=== PATIENT | female | born 1965 | race Asian ===

== ENCOUNTER 2020-02-23 15:09 | Outpatient (REF) | payer BC, SELFPAY ==
--- NOTE | 2020-02-23 | MM_ITS ---
EXAMINATION: MM SCREENING DIGITAL BREAST TOMOSYNTHESIS, BILATERAL CLINICAL INFORMATION: Screening. Asymptomatic. The lifetime risk of breast cancer based on the Tyrer-Cuzick Model is 8%. COMPARISON: Mammography: 02/20/2019, 12/14/2017, 11/05/2014 TECHNIQUE: Digital breast tomosynthesis is performed in both the craniocaudal and mediolateral oblique views along with computer-aided detection (CAD). Synthesized 2D images are generated from the tomosynthesis. Additional exaggerated left CC view is provided. FINDINGS: There are scattered areas of fibroglandular density (ACR BI-RADS breast composition Category b). There are no significant masses, abnormal calcifications, or other abnormalities. There is a small circumscribed nodule mid medial right breast on CC view similar to prior exams. No developing density. MM/MM tomosynthesis screening BI IMPRESSION: No mammographic evidence of malignancy. ASSESSMENT: BI-RADS 2: Benign RECOMMENDATION: Routine annual mammography screening. This patient's information was entered into a reminder system with a target due date for their next mammogram.
== END 2020-02-23 15:10 | disposition home or self-care (01) ==
LOC: HO.MAMMO 15:09
PROVIDERS: PCP Internal Medicine; Visit Provider Internal Medicine
DX: Z12.31 Encounter for screening mammogram for malignant neoplasm of breast (principal)
CPT/HCPCS: 77063; 77067

== ENCOUNTER 2020-03-24 14:32 | Outpatient (REF) | payer BC, SELFPAY ==
--- NOTE | 2020-03-24 | MM_ITS ---
EXAMINATION: BONE DENSITOMETRY CLINICAL INDICATION: Screening for osteoporosis. COMPARISON: None (current study represents initial baseline exam). TECHNIQUE: Using a [employer] DXA System (software version: 13.1) manufactured by [employer], dual-energy x-ray absorptiometry was performed of the lumbar spine and left hip. The images are of good technical quality. Summary results are attached. FINDINGS: AP SPINE L1-L4: BMD 1.014 g/cm2, Z-score -0.5, T-score -1.4, osteopenia. LEFT FEMUR, NECK: BMD 0.815 g/cm2, Z-score -0.6, T-score -1.6, osteopenia. LEFT FEMUR, TOTAL: BMD 0.842 g/cm2, Z-score -0.6, T-score -1.3, osteopenia. IDENTIFIED RISK FACTORS: Menopause. HISTORY OF FRACTURE: None listed. MEDICATIONS: Multivitamin, ERT/SERMS. MM/XR DEXA axial skeleton IMPRESSION: 1. DIAGNOSIS: Osteopenia based on the lowest T-score value of -1.6 in the femoral neck applying World Health Organization criteria. 2. 10-YEAR FRACTURE RISK PREDICTION, FRAX: Major osteoporotic fracture (clinical spine, forearm, hip or shoulder) 3.9%. Hip fracture 0.3%. 3. Treatment Recommendations: NOF guidelines recommend consideration for treatment in postmenopausal women and men age 50 and older presenting with the following: -A hip or vertebral (clinical or morphometric) fracture. -T-score less than or equal to -2.5 at the femoral neck or spine after appropriate evaluation to exclude secondary causes. -Low bone mass at the hip or spine and a 10-year fracture probability by FRAX of greater than or equal to 3% for hip fracture or greater than or equal to 20% for major osteoporotic fracture based on the [place] adapted WHO algorithm. 4. Other Recommendations: All treatment decisions require clinical judgment and consideration of individual patient factors, including patient preferences, comorbidities, previous drug use, risk factors not captured in the FRAX model (e.g. frailty, falls, vitamin D deficiency, increased bone turnover, interval significant decline in bone density) and possible under or overestimation of fracture risk by FRAX. Additional medical evaluation for secondary cause of low bone mineral density may be appropriate. FUTURE SCAN RECOMMENDATION: People with diagnosed cases of osteoporosis or at high risk for fracture should have regular bone mineral density tests. For patients eligible for Medicare, routine testing is allowed once every 2 years. The testing frequency can be increased to one year for patients who have rapidly progressing disease, those who are receiving or discontinuing medical therapy to restore bone mass, or have additional risk factors.
== END 2020-03-24 14:33 | disposition home or self-care (01) ==
LOC: HO.MAMMO 14:32
PROVIDERS: Visit Provider Obstetrics & Gynecology Gynecology
DX: Z12.31 Encounter for screening mammogram for malignant neoplasm of breast (principal); Z13.820 Encounter for screening for osteoporosis; Z78.0 Asymptomatic menopausal state; Z79.810 Long term (current) use of selective estrogen receptor modulators (SERMs)
CPT/HCPCS: 77080

== ENCOUNTER 2021-03-06 08:06 | Outpatient (REF) | payer BC, SELFPAY ==
--- NOTE | ~2021-03-06 | MM_ITS ---
EXAMINATION: MM SCREENING DIGITAL BREAST TOMOSYNTHESIS, BILATERAL CLINICAL INFORMATION: Screening. Asymptomatic. The lifetime risk of breast cancer based on the Tyrer-Cuzick Model is 7%. COMPARISON: Mammography: 02/23/2020, 02/20/2019, 12/14/2017 TECHNIQUE: Digital breast tomosynthesis is performed in both the craniocaudal and mediolateral oblique views along with computer-aided detection (CAD). Synthesized 2D images are generated from the tomosynthesis. FINDINGS: There are scattered areas of fibroglandular density (ACR BI-RADS breast composition Category b). There are no significant masses, abnormal calcifications, or other abnormalities. No developing density or interval architectural abnormality. No significant changes. MM/MM tomosynthesis screening BI IMPRESSION: There are no significant changes from prior study. ASSESSMENT: BI-RADS 2: Benign RECOMMENDATION: Routine annual mammography screening. This patient's information was entered into a reminder system with a target due date for their next mammogram.
== END 2021-03-06 08:07 | disposition home or self-care (01) ==
LOC: HO.MAMMO 08:06
PROVIDERS: PCP Internal Medicine; Visit Provider Internal Medicine
DX: Z12.31 Encounter for screening mammogram for malignant neoplasm of breast (principal)
CPT/HCPCS: 77063; 77067

== ENCOUNTER 2022-03-22 09:00 | Outpatient (REF) | payer BC, SELFPAY ==
--- NOTE | ~2022-03-22 | MM_ITS ---
EXAMINATION: MM SCREENING DIGITAL BREAST TOMOSYNTHESIS, BILATERAL CLINICAL INFORMATION: Screening. Asymptomatic. The lifetime risk of breast cancer based on the Tyrer-Cuzick Model is 6%. COMPARISON: Mammography: 03/06/2021, 02/23/2020, 02/20/2019 TECHNIQUE: Digital breast tomosynthesis is performed in both the craniocaudal and mediolateral oblique views along with computer-aided detection (CAD). Synthesized 2D images are generated from the tomosynthesis. FINDINGS: There are scattered areas of fibroglandular density (ACR BI-RADS breast composition Category b). There are no significant masses, abnormal calcifications, or other abnormalities. Parenchymal pattern is similar to prior studies. The axilla and skin contours are unremarkable. MM/MM tomosynthesis screening BI IMPRESSION: No mammographic evidence of malignancy. ASSESSMENT: BI-RADS 1: Negative RECOMMENDATION: Routine annual mammography screening. This patient's information was entered into a reminder system with a target due date for their next mammogram.
== END 2022-03-22 09:01 | disposition home or self-care (01) ==
LOC: HO.MAMMO 09:00
PROVIDERS: PCP Internal Medicine; Visit Provider Internal Medicine
DX: Z12.31 Encounter for screening mammogram for malignant neoplasm of breast (principal)
CPT/HCPCS: 77063; 77067

== ENCOUNTER 2023-03-27 09:01 | Outpatient (REF) | payer BC, SELFPAY | END 2023-03-27 09:02 | disposition home or self-care (01) | LOC: HO.MAMMO 09:01 | PROVIDERS: PCP Internal Medicine; Visit Provider Internal Medicine | DX: Z12.31 Encounter for screening mammogram for malignant neoplasm of breast (principal) | CPT/HCPCS: 77063; 77067 ==

== ENCOUNTER → 2023-03-27 09:15 | Outpatient (BNV) | payer BC, SELFPAY | PROVIDERS: PCP Internal Medicine; Visit Provider Radiology Diagnostic Radiology | DX: Z12.31 Encounter for screening mammogram for malignant neoplasm of breast (principal) | CPT/HCPCS: 77063; 77067 ==

== ENCOUNTER → 2024-03-30 09:00 | Outpatient (BNV) | payer BC, SELFPAY | PROVIDERS: PCP Internal Medicine; Visit Provider Internal Medicine | DX: Z12.31 Encounter for screening mammogram for malignant neoplasm of breast (principal) | CPT/HCPCS: 77063; 77067 ==

== ENCOUNTER 2024-03-30 09:05 | Outpatient (REF) | payer BC, SELFPAY ==
--- OUTSIDE RECORDS SUMMARY | 2024-03-30 09:25 | XMS_ITS | Clinical Summary ---
Author Organization [facility] Address [address] [place] [id number] Care Team Providers Care Manager Concrete Name Role Phone Pcp, No Primary Care Provider Unavailabl e Allergies No known active allergies Medications Medication Sig Dispensed Refills Start Date End Date Status amLODIPine (NORVASC) 10 MG tablet Take 1 tablet (10 mg total) by mouth. 01/26/2024 Active Synthroid 75 MCG tablet Take 1 tablet (75 mcg total) by mouth. 01/26/2024 Active Encounters Date Type Department Care Team Description 03/11/2024 1:45 PM EST Workers Comp Episode [facility] [address] [phone] Penelope Pascual MD Hand pain, right (Primary Dx) 03/11/2024 Travel from Last 3 Months Social History Tobacco Use Types Packs/Day Years Used Date Smoking Tobacco: Never Assessed Sex and Gender Information Value Date Recorded Sex Assigned at Female 03/11/2024 1:25 PM EST Gender Identity Female 03/11/2024 1:25 PM EST Sexual Orientation Choose not to disclose 2024 1:25 PM EST Last Filed Vital Signs Vital Sign Reading Time Taken Comments Blood Pressure 110/80 03/11/2024 2:07 PM EST Pulse 68 03/11/2024 2:07 PM EST Temperature 36.8 ??C (98.2 ??F) 03/11/2024 2:07 PM ES T Respiratory Rate - - Oxygen Saturation 97% 03/11/2024 2:07 PM EST Inhaled Oxygen Concentration - - Weight - - Height - - Body Mass Index - - Plan of Treatment Upcoming Encounters Date Type Department Care Team (Late st Contact Info) Description 04/09/2024 10:45 AM EST [facility] Visit [facility] [address] [place] [address] Vidal Velasquez MD [address] [place] [address] [place] [address] Health Maintenance Due Date Last Done Comments Hepatitis C Virus Screening 1965 HIV Screening 11/28/1976 DTaP/Tdap/Td Vaccines (1 - Tdap) 11/28/1982 Pap Smear (Ages 21-65) 11/28/1984 Mammogram 2003 Colonoscopy 11/28/2008 Pneumococcal Vaccines 50+ (1 of 1 - PCV) 11/28/2013 Zoster (Shingles) Vaccine (1 of 2) 11/28/2013 Influenza Vaccine 09/26/2023 COVID-19 Vaccine (1 - 2023-2 5 season) 2023 RSV Vaccine 60 years and old er and Patients (1 - 1-dose 75+ series) 11/28/2038 Hepatitis B Vaccines Aged Out No long er eligible based on patient's age to complete this topic Care Teams Manager Concrete Relationship Specialty Start Date End Date Pcp, No PCP - General General Medicine 03/11/24
--- OUTSIDE RECORDS SUMMARY | 2024-03-30 09:25 | XMS_ITS | Encounter Summary ---
Author Organization [facility] Address [address] [place] [address] Care Team Providers Care Devil Tender Name Role Phone Pcp, No Primary Care Provider Unavailabl e Reason for Referral * Orthopedic (Routine) - Closed Specialty Diagnoses / Procedures Referred By Fernanda joyner Referred To Contact Surgery, Orthopedic / Orthopedic Surgery Diagnoses Hand pain, right Penelope Pascual MD [address] [place] [address] Referral ID Status Reason Start Date Expiration Date V isits Requested Visits Authorized [id number] Closed Consult 03/11/2024 03/12/2025 1 1 Comments Hand surgeon please Patient requests provider who sees patients in the [facility] Reason for Visit * Reason Comments Work Related Injury Right thumb cyst x 1 month Encounter Details Date Type Department Care Team (Latest Contact Info) Description 03/11/2024 1:45 PM EST Workers Comp [place] [phone] Penelope Pascual MD [address] [place] [address] Hand pain, right (Primary Dx) Social History Tobacco Use Types Packs/Day Years Used Date Smoking Tobacco: Never Assessed Sex and Gender Information Value Date Recorded Sex Assigned at Female 03/11/2024 1:25 PM EST Gender Identity Female 03/11/2024 1:25 PM EST Sexual Orientation Choose not to disclose 2024 1:25 PM EST documented as of this encounter Last Filed Vital Signs Vital Sign Reading Time Taken Comments Blood Pressure 110/80 03/11/2024 2:07 PM EST Pulse 68 03/11/2024 2:07 PM EST Temperature 36.8 ??C (98.2 ??F) 03/11/2024 2:07 PM ES T Respiratory Rate - - Oxygen Saturation 97% 03/11/2024 2:07 PM EST Inhaled Oxygen Concentration - - Weight - - Height - - Body Mass Index - - documented in this encounter Progress Notes * Penelope Pascual MD - 03/11/2024 2:26 PM EST Worker's Compensation Initial Visit Patient name: Milvia Begum Sex: female Date of : 1965 Occupation: [employer] Worker's Compensation Data Date Of Injury Employer Body Part Injury Description Claim ID Feb 11, 2024 [employer] [[id number]] Right Hand [107] PATIENTS HAND GOT INJURED OVERTIME FROM JOB DUTIES 11520 Assessment/Plan: 1. Hand pain, right Discussed with the patient. At this time there is no further care that I can provide. I have referred her to orthopedics. Are findings consistent with patient's account of injury or onset of illness? Yes Is there any other current condition that will impede or delay patients recovery? No Subjective: Subjective : Milvia Begum is a 58 y.o. female. HPI the patient works in [employer]. Over time she has developed large outgrowth that appears to be at the base of the carpal of her right thumb. Of late it is becoming increasingly tender, disturbing her sleep and impeding her ability to work. Review of Systems Objective: Objective BP 110/80 Pulse 68 Temp 98.2 ??F (36.8 ??C) (Temporal) SpO2 97% Physical Exam Vitals reviewed. Constitutional: Appearance: She is well-developed. HENT: Head: Atraumatic. Eyes: General: No scleral icterus. Pulmonary: Effort: Pulmonary effort is normal. Musculoskeletal: Comments: Tender bony outgrowth at the base of the MP of the right thumb with slight bogginess. There is also a rash on the dorsum of the hand but there is no evidence of primary infection around thejoint. The joint moves freely without pain Skin: General: Skin is warm and dry. Neurological: Mental Status: She is alert. Psychiatric: Behavior: Behavior normal. Thought Content: Thought content normal. Judgment: Judgment normal. Penelope Pascual MD [address] [phone] Dept: [phone] Dept documented in this encounter Plan of Treatment Upcoming Encounters Date Type Department Care Team (Late st Contact Info) Description 04/09/2024 10:45 AM EST [facility] [address] [place] [address] Vidal Velasquez MD [address] [place] [address] Scheduled Referrals Name Type Priority Associated Diagnoses Order Schedule Amb referral to Orthopedic Surgery Outpatient Referral Routine Hand pain, right Ordered: 03/11/2024 documented as of this encounter Visit Diagnoses Diagnosis Hand pain, right- Primary Pain in soft tissues of limb documented in this encounter Care Teams Devil Tender Relationship Specialty Start Date End Date Pcp, No PCP - General General Medicine 03/11/24 documented as of this encounter
--- OUTSIDE RECORDS SUMMARY | 2024-03-30 09:25 | XMS_ITS | Encounter Summary ---
Author Organization [facility] Address [address] [place] [address] Care Team Providers Care Glove Stitcher Name Role Phone Pcp, No Primary Care Provider Unavailabl e Encounter Details Date Type Department Care Team (Latest Contact Info) Description 03/11/2024 Travel Social History Tobacco Use Types Packs/Day Years Used Date Smoking Tobacco: Never Assessed Sex and Gender Information Value Date Recorded Sex Assigned at Female 03/11/2024 1:25 PM EST Gender Identity Female 03/11/2024 1:25 PM EST Sexual Orientation Choose not to disclose 2024 1:25 PM EST documented as of this encounter Plan of Treatment Upcoming Encounters Date Type Department Care Team (Late st Contact Info) Description 04/09/2024 10:45 AM EST [facility] [address] [place] [address] Vidal Velasquez MD [address] [place] [address] documented as of this encounter Visit Diagnoses Not on filedocumented in this encounter Care Teams Glove Stitcher Relationship Specialty Start Date End Date Pcp, No PCP - General General Medicine 03/11/24 documented as of this encounter
--- OUTSIDE RECORDS SUMMARY | 2024-03-30 09:25 | XMS_ITS | Data Portability ---
Author Organization [facility] [id number] Address [address] [place] [address] Assessment No assessment recorded. Plan of Treatment Reminders Order Date Submit Date Provider Last Modified By Organization Details Last Modified Time Details Appointments None recorded. Lab None recorded. Referral None recorded. Procedures None recorded. Surgeries None recorded. Imaging None recorded. Medication Orders Medrol (Nicholas) 4 mg tablets in a dose pack 2021 [id number], [address] [place] [address], [address], 11:57:52 hydroxyzine HCl 25 mg tablet 2021 022 [id number], [address] [place] [address], [address], 11:57:53 Patient TargetsNo targets recorded. Patient InstructionsNo instructions recorded. Reason for Referral None Reported. 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 Procedures Surgical History Date Name Laterality Status Provider Name and Address Organization Details Recorded Time section completed LULA STEARNS [place] - [facility] 02/11/2022 11:26:59 Imaging Results None recorded. Procedure Notes None recorded. Medical Equipment None Reported. Allergies No known drug allergies Medications Name Sig Start Date Stop Date Status Note LastModified by Organization Details LastModified Time Medrol (Nicholas) 4 mg tablets in a dose pack Take 1 dose pk by oral route. 2021 active Not Available Not Available Not Avai lable hydroxyzine HCl 25 mg tablet Take 1 tablet 3 times a day by oral route as needed for 5 days. 2021 active Not Available Not Available Not Avai lable levothyroxine active Not Available Not Available Not Available lisinopril active Not Available Not Av ailable Not Available Vitals Date Recorded Body height Body mass index (BMI) Body weight Oxygen saturation Oxygen saturation in Arterial blood by Pulse oximetry Pain severity - 0-10 verbal numeric rating [Score] - Reported Heart rate Respiratory rate Body temperature Systolic blood pressure Diastolic blood pressure Provider Name and Address Organization Details Last Updated DateTime 2 152.4 cm 26.4 kg/m2 73100.9 7 g 97 % 97 % 0 60 /min 20 /min 97.9 [degF] 154 mm[Hg] 86 mm[Hg] LULA STEARNS [employer] 11:27:12 Social History Question Answer Notes LastModified by [employer] Details LastModified Time Tobacco Smoking Status Never Smoker LULA rodriguez [employer] 02/11/2022 11:26:48 What Is Your Level Of Alcohol Consumption? None Information not available 02/11/2022 Do You Use Any Illicit Or Recreational Drugs? No Information not available 02/11/2022 Have You Recently Traveled Abroad? No Information not available 02/11/2022 Do You Or Have You Ever Used Any Other Forms Of Tobacco Or Nicotine? No Information not available 02/11/2022 Sex: Unknown Functional Status None recorded. Mental Status None recorded. Family History Relationship Description Onset Age of this Age Resolved Age Notes LastModified by Organization Details LastModified Time Father Diabetes mellitus Not available 2021 11:26:23 Father Hypertensive disorder Not available 2021 11:26:37 Medical History No medical history recorded. Gynecological HistoryNo gynecological history recorded. Obstetrics History GPAL:G 0 P 0 0 0 0 Past Encounters Encounter ID Performer Location Encounter Start Date Encounter Closed Date Diagnosis/Indication Diagnosis SNOMED-CT Code Diagnosis ICD10 Code Diagnosis Note [id number] [id number] [address] 12/06/2014 18:29:17 12/06/2014 19:50:31 [id number] Emily diaz MD [id number] [address] 02/11/2022 09:35:00 02/11/2022 11:58:44 Generalized rash 900404697 R21 Customary discussion of prescribed medication benefits, side effects, and compliance was done. Patient was instructed on proper skin care. Discussed disease presentati on, treatment options, progressio n, complicati ons, and outcomes with patient during this office visit.You should follow-up with your PCP indays, or at any time if your condition does not improve or worsens. Any acute change should prompt a visit to the nearest Emergency Department . Health Concerns Section Related Observation LastModified by Organization Detai ls LastModified Time None Recorded Concern Status LastModified by Organization Details LastModified Time None Recorded Advance Directives Directive None Recorded Payers Encounter Date Sequence Insurance Name Policy Number Policy Oliva Covered Member ID Oliva Member ID Guarantor Name 02/11/2022 1 [employer] [employer] [place] [id number] Milvia Begum [id number] Milvia Jacquesay Notes Date Note Type Note Provider Name and Address Organization Details Recorded Time 2 text/html UC Rash/Skin LesionReported bypatient.source of patient informationInformation obtained from patient; Patient arrived at Urgent Care ambulatory Location:chest; arms Quality:itchy;red Severity:moderate Duration:1 weeks Context:no new detergent or skin product; no recent change in medication; no exposure to hair dye; no expsoure to new clothes/jewelry; no recent travel; no recent illness; no pets/animals in home; not affiliated with chemicals/pesticides; The only change she can recall is her use of levothyroxine instead of brand name synthroid Emily Mauricio MD [facility] [place], [phone], [place] - [facility] 02/11/2022 12:12:26 OBGyn Episode No OBEpisode recorded.
== END 2024-03-30 09:06 | disposition home or self-care (01) ==
LOC: HO.MAMMO 09:05
PROVIDERS: PCP Internal Medicine; Visit Provider Internal Medicine
DX: Z12.31 Encounter for screening mammogram for malignant neoplasm of breast (principal)
CPT/HCPCS: 77063; 77067